=== PATIENT | female | born 1985 | race Caucasian/White ===

== ENCOUNTER 2020-08-14 09:21 | Outpatient (REF) | payer OTHER, SELFPAY ==
[2020-08-14 12:53] LABS: Alanine Aminotransferase 15 U/L (0-31); Albumin Level 4.7 g/dL (3.5-5.0); Alkaline Phosphatase 25 U/L (39-117); Anion Gap 13 (12-20); Aspartate Amino Transferase 13 U/L (5-31); Bilirubin Total 1.1 mg/dL (0.0-1.0); Blood Urea Nitrogen 15 mg/dL (9-16); Calcium 9.4 mg/dL (8.4-10.2); Carbon Dioxide 26 mmol/L (22-29); Chloride 105 mmol/L (96-108); Cholesterol 175 mg/dL; Estimated Glomerular Filt Rate > 60; Glucose Fasting 76 mg/dL (60-99); HDL Cholesterol 63 mg/dL; LDL Cholesterol Calculated 101 mg/dl; Potassium 5.1 mmol/L (3.3-5.1); Sodium 139 mmol/L (135-145); Total Protein 7.3 g/dL (6.5-8.0); Triglycerides 57 mg/dL
== END 2020-08-14 09:22 | disposition home or self-care (01) ==
LOC: HO.HMGCLDS 09:21
PROVIDERS: PCP Nurse Practitioner Family; Visit Provider Nurse Practitioner Family
DX: I49.9 Cardiac arrhythmia, unspecified (principal); Z00.00 Encounter for general adult medical examination without abnormal findings; Z13.220 Encounter for screening for lipoid disorders; Z23 Encounter for immunization
CPT/HCPCS: 36415; 80053; 80061; 84443

== ENCOUNTER → 2020-09-17 12:49 | Outpatient (REF) | payer OTHER, SELFPAY ==
--- NOTE | 2020-09-17 13:10 | ECG_ITS ---
Hook-up date: 2020-09-17 13:06:00 Duration: 25:24:00 Test Indications: CARDIAC ARRHYTHMIA, UNKNOWN Medications: 51816 QRS complexes * Ventricular ectopics which represent % of total QRS comp. 7 Supraventricular ectopics which represent <1 % of total QRS comp. * Paced QRS complexs which represent % of total QRS comp. VENTRICULAR ECTOPY * Isolated * Bigeminal Cycles * Couplets * Runs * Beats in Runs * Beats LONGEST at * BPM at :: -- * Beats FASTEST at * BPM at :: -- SUPRAVENTRICULAR ECTOPY 7 Isolated 0 Couplets 0 Runs 0 Beats in Runs * Beats LONGEST at * BPM at :: -- * Beats FASTEST at * BPM at :: -- HEART RATES 45 MIN at 02:09:44 2020-09-18 68 AVG 163 MAX at 08:48:38 2020-09-18 LONGEST RR 1.3440 secs at 04:56:10 2020-09-18 S-T LEVELS Channel 1 - 128 mm at 13:06:00 2020-09-17 - 128 mm at 13:06:00 2020-09-17 Channel 2 - 128 mm at 13:06:00 2020-09-17 - 128 mm at 13:06:00 2020-09-17 Channel 3 - 128 mm at 03:22:51 -- - 128 mm at 03:22:51 Basic rhythm Normal sinus rhythm No long pause or profound bradycardia No dangerous dysrhythm periods No diary submitted Referred By: Jamal Arredondo Overread By: RONNA EVERETT MD
== END ==
LOC: HO.CARD 12:49
PROVIDERS: Visit Provider Nurse Practitioner Family
DX: I49.9 Cardiac arrhythmia, unspecified (principal)
CPT/HCPCS: 93225; 93226

== ENCOUNTER 2021-11-19 08:28 | Outpatient (REF) | payer OTHER, SELFPAY ==
[2021-11-19 11:17] LABS: MANUAL DIFF FLAG NO
[2021-11-19 11:32] LABS: Basophils Absolute Auto 0.1 X10*3/uL (0.0-0.2); Basophils Percent Auto 1.2 % (0-2); Eosinophils Absolute Auto 0.5 X10*3/uL (0.0-0.4); Hematocrit 44.3 % (37.0-47.0); Hemoglobin 14.5 g/dl (12.0-16.0); Lymphocytes Absolute Auto 2.2 X10*3/uL (1.2-4.9); Lymphocytes Percent Auto 33.5 % (20-40); Mean Corpuscular HGB Conc 32.7 g/dl (31.0-35.0); Mean Corpuscular Hemoglobin 30.3 pg (27.0-33.0); Mean Corpuscular Volume 92.7 fL (80.0-98.0); Mean Platelet Volume 10.8 fL (9.4-12.3); Monocytes Absolute Auto 0.4 X10*3/uL (0.1-1.2); Monocytes Percent Auto 6.4 % (2-11); Neutrophils Absolute Auto 3.3 x10*3/uL (2.0-8.3); Neutrophils Percent Auto 50.9 % (45-73); Platelet Count 289 X10*3/uL (160-400); Red Blood Count 4.78 X10*6/uL (4.20-5.50); Red Cell Distribution Width 12.6 % (11.0-16.0); White Blood Count 6.4 X10*3/uL (4.8-10.8)
[2021-11-19 11:40] LABS: Appearance Urine Clear; Color Urine Yellow; Glucose Urine UA Negative (Negative); Leukocyte Esterase Urine Trace (Negative); Nitrite Urine Negative (Negative); Urine Blood Negative (Negative); Urine Ketones Negative (Negative); Urine Protein Negative (Neg-Trace)
[2021-11-19 11:47] LABS: Bacteria Urine Trace (None Seen); Hyaline Casts Urine 0-2 /LPF (0-2); WBC Urine 0-5 /HPF (0-5)
[2021-11-19 12:34] LABS: TSH reflex Free T4 1.32 uIU/mL (0.32-4.0)
[2021-11-19 12:47] LABS: Alanine Aminotransferase 15 U/L (0-31); Albumin Level 4.2 g/dL (3.5-5.0); Alkaline Phosphatase 25 U/L (39-117); Anion Gap 14 (12-20); Aspartate Amino Transferase 14 U/L (5-31); Bilirubin Total 0.8 mg/dL (0.0-1.0); Blood Urea Nitrogen 14 mg/dL (9-16); Carbon Dioxide 27 mmol/L (22-29); Chloride 104 mmol/L (96-108); Cholesterol 164 mg/dL; Estimated Glomerular Filt Rate > 60; Glucose Fasting 87 mg/dL (60-99); HDL Cholesterol 59 mg/dL; LDL Cholesterol Calculated 88 mg/dl; Potassium 4.9 mmol/L (3.3-5.1); Sodium 140 mmol/L (135-145); Triglycerides 85 mg/dL
== END 2021-11-19 08:29 | disposition home or self-care (01) ==
LOC: HO.HMGCLDS 08:28
PROVIDERS: PCP Nurse Practitioner Family; Visit Provider Nurse Practitioner Family
DX: Z00.00 Encounter for general adult medical examination without abnormal findings (principal)
CPT/HCPCS: 36415; 80053; 80061; 81001; 84443; 85025

== ENCOUNTER 2022-09-16 08:42 | Outpatient (REF) | payer OTHER, SELFPAY ==
[2022-09-16 11:10] LABS: MANUAL DIFF FLAG NO
[2022-09-16 11:24] LABS: Basophils Absolute Auto 0.1 X10*3/uL (0.0-0.2); Basophils Percent Auto 1.5 % (0-2); Eosinophils Absolute Auto 0.9 X10*3/uL (0.0-0.4); Eosinophils Percent Auto 11.8 % (0-4); Hematocrit 43.4 % (37.0-47.0); Imm Gran Abs Auto 0.02 X10*3/uL (0.00-0.03); Imm Gran Pct Auto 0.3 % (0.0-0.4); Lymphocytes Absolute Auto 2.1 X10*3/uL (1.2-4.9); Lymphocytes Percent Auto 27.7 % (20-40); Mean Corpuscular HGB Conc 32.3 g/dl (31.0-35.0); Mean Corpuscular Hemoglobin 29.7 pg (27.0-33.0); Mean Corpuscular Volume 92.1 fL (80.0-98.0); Mean Platelet Volume 10.8 fL (9.4-12.3); Monocytes Absolute Auto 0.4 X10*3/uL (0.1-1.2); Monocytes Percent Auto 5.3 % (2-11); Neutrophils Percent Auto 53.4 % (45-73); Platelet Count 327 X10*3/uL (160-400); Red Blood Count 4.71 X10*6/uL (4.20-5.50); Red Cell Distribution Width 12.8 % (11.0-16.0); White Blood Count 7.4 X10*3/uL (4.8-10.8)
[2022-09-16 11:27] LABS: Appearance Urine Clear; Color Urine Yellow; Glucose Urine UA Negative (Negative); Leukocyte Esterase Urine Negative (Negative); Nitrite Urine Negative (Negative); PH 6.5 (5.0-9.0); Specific Gravity - Urine 1.025 (1.005-1.025); Urine Blood Negative (Negative); Urine Ketones Negative (Negative); Urine Protein Negative (Neg-Trace)
[2022-09-16 11:45] LABS: Alanine Aminotransferase 16 U/L (0-31); Albumin Level 3.9 g/dL (3.5-5.0); Alkaline Phosphatase 30 U/L (39-117); Anion Gap 13 (12-20); Aspartate Amino Transferase 13 U/L (5-31); Bilirubin Total 0.5 mg/dL (0.0-1.0); Blood Urea Nitrogen 21 mg/dL (9-16); Calcium 9.5 mg/dL (8.4-10.2); Carbon Dioxide 26 mmol/L (22-29); Chloride 108 mmol/L (96-108); Cholesterol 175 mg/dL; Estimated Glomerular Filt Rate > 60; Glucose Fasting 86 mg/dL (60-99); HDL Cholesterol 70 mg/dL; LDL Cholesterol Calculated 95 mg/dl; Potassium 5.5 mmol/L (3.3-5.1); Sodium 141 mmol/L (135-145); Total Protein 6.9 g/dL (6.5-8.0); Triglycerides 50 mg/dL
[2022-09-16 12:05] LABS: TSH reflex Free T4 1.45 uIU/mL (0.32-4.0)
== END 2022-09-16 08:43 | disposition home or self-care (01) ==
LOC: HO.HMGCLDS 08:42
PROVIDERS: PCP Nurse Practitioner Family; Visit Provider Nurse Practitioner Family
DX: Z00.00 Encounter for general adult medical examination without abnormal findings (principal); Z13.220 Encounter for screening for lipoid disorders; Z13.29 Encounter for screening for other suspected endocrine disorder
CPT/HCPCS: 36415; 80053; 80061; 81003; 84443; 85025

== ENCOUNTER 2022-09-17 08:26 | Outpatient (REF) | payer OTHER, SELFPAY ==
[2022-09-17 11:33] LABS: Appearance Urine Clear; Color Urine Yellow; Glucose Urine UA Negative (Negative); Leukocyte Esterase Urine Negative (Negative); Nitrite Urine Negative (Negative); PH 6.5 (5.0-9.0); Specific Gravity - Urine <= 1.005 (1.005-1.025); Urine Blood Negative (Negative); Urine Ketones Negative (Negative); Urine Protein Negative (Neg-Trace)
== END 2022-09-17 08:27 | disposition home or self-care (01) ==
LOC: HO.HMGCLDS 08:26
PROVIDERS: PCP Nurse Practitioner Family; Visit Provider Nurse Practitioner Family
DX: Z00.00 Encounter for general adult medical examination without abnormal findings (principal); E87.5 Hyperkalemia
CPT/HCPCS: 36415; 80051; 81003

== ENCOUNTER 2022-09-21 14:25 | Outpatient (AMB) | payer OTHER, SELFPAY ==
--- NOTE | 2022-09-21 14:47 | MHC.PC.OV ---
Vital Signs 09/21/22 14:48 Height 5 ft 4 in Weight 175 lb 6 oz BMI 30.1 BP 126/88 Blood Pressure Location Lt brachial Position Sitting Pulse 75 Pulse Source Pulse Oximeter Pulse Oximetry (%) 100 Oxygen Delivery Method Room Air Intake Visit Reasons: Annual PE Allergies nitrofurantoin [Macrobid] Allergy (Unknown, Verified 09/21/22 14:52) nausea penicillin V Allergy (Unknown, Verified 09/21/22 14:52) hives Medication List - Last Reconciled 09/21/22 by EDDIE Russo albuterol sulfate 90 mcg/actuation 2 puffs inhalation Q4-6H PRN desogestrel-ethinyl estradiol 0.15-0.03 mg (Isibloom) 1 tab PO DAILY fluticasone propionate 110 mcg/actuation (Flovent HFA) 1 puff inhalation BID sertraline 50 mg PO DAILY Tobacco use date assessed: 09/15/21 Dental Screening Dental Screen Date: 09/21/22 Did you have a dental visit in the last 12 months?: Yes Did you have a dental problem in the last 6 months where you did not have access to dental care?: No Was dental information given to patient?: Patient has dentist HPI Annual PE HPI Details Pt is here for a PE. Will order labs. Pt has a obstetrics gynecology physician. Labs were already drawn [facility] Medical History Cardiac arrhythmia, unspecified Moderate persistent asthma without complication Surgical History H/O abdominoplasty H/O breast augmentation Hx of section Family History Father Cholangiocarcinoma Hypertension Substance use disorder Mother Hypertension Diabetes High cholesterol Social History Housing: House Alcohol intake: current Alcohol intake frequency: a few times a week Alcohol type: wine Patient Tobacco Use Status: Never used Tobacco e-Cigarette/Vaping Use: Never Used Second Hand Smoke Exposure: No service: No Current occupational status: employed Current occupation: [employer] Current occupational exposures/hazards: Yes Cognitive needs: No Hearing needs: No Vision needs: No Questionnaire Thrive Questionnaire Date Thrive assessed: 09/15/21 RANDY-7 AMB Questionnaire RANDY-7 Date RANDY - 7 assessed: 09/15/21 Source: Developed by Drs. Goran Bernabe, Kelli Singer, Wilbur Mayfield and colleagues, with an educational johny from [employer]. Review of Systems Const Denies chills and Denies fever(s) Eyes Denies blurry vision ENT Denies vertigo, Denies dizziness and Denies sore throat Card Denies chest pain at rest, Denies chest pain with activity, Denies diaphoresis, Denies dyspnea and Denies dyspnea on exertion Resp Denies cough, Denies dyspnea, Denies dyspnea on exertion and Denies wheezing GI Denies abdominal pain, Denies melena, Denies hematochezia, Denies constipation, Denies diarrhea and Denies loose stools Denies hematuria Musc Denies numbness and Denies tingling Skin/Breast Denies lesions Neuro Denies vertigo, Denies dizziness, Denies numbness and Denies tingling Psych Denies anxiety, Denies depression, Denies homicidal ideation, Denies suicidal ideation and Denies other (substance abuse) Aller/Immun Denies wheezing Physical exam (Primary Care) Vital Signs: Last Vital Signs Pulse 75 09/21/22 14:48 BP 126/88 09/21/22 14:48 Pulse Ox 100 09/21/22 14:48 Oxygen Delivery Method Room Air 09/21/22 14:48 BMI result Body Mass Index 30.1 Tobacco/Smoking Status: Tobacco use Status Tobacco use date assessed 09/15/21 09/21/22 14:57 Patient Tobacco Use Status Never used Tobacco 09/21/22 14:57 e-Cigarette/Vaping Use Never Used 09/21/22 14:57 Thrive Assessment: Date of Thrive Assessment Date Thrive assessed 09/15/21 09/21/22 14:57 Const General: cooperative Nutritional Appearance: well nourished Orientation/consciousness: patient oriented x3 HENMT Head: Yes normal to inspection, Yes normocephalic and Yes atraumatic Ears: TM's normal bilaterally Eyes General: appearance normal, both eyes and all related structures Alignment and Position: alignment normal and position normal Neck Neck: Yes normal visual inspection and Yes no lymphadenopathy Thyroid: Thyroid normal Resp Effort & Inspection: normal respiratory effort Auscultation: clear to auscultation bilaterally Cardio Rate: regular rate Rhythm: regular rhythm Heart sounds: S1 normal heart sound present, S2 normal heart sound present and no murmurs GI Palpation (GI): Soft to palpation and nontender Auscultation: normal bowel sounds Skin Rashes: no rashes Neuro General: patient oriented x3, moves all extremities, no focal motor deficits and deep tendon reflexes 2+ bilaterally Romberg Test: Negative Psych Appearance: grossly normal Mental Status: mental status grossly normal Speech and movement: Normal speech and movement present Affect: normal affect Attitude: cooperative Thought process: Normal thought process present Thought content: Normal thought content present Insight: Good insight present (Psych) Judgement: Good judgement present (Psych) Assessment and Plan Assessment & Plan (1) Hyperkalemia: Code(s): E87.5 - Hyperkalemia (2) Physical exam: Code(s): Z00.00 - Encounter for general adult medical examination without abnormal findings Plan The patient agreed to the use of a medical records administrator for this encounter. Scribed for HENRY Kennedy-CLARISSA by Jolie Mo medical records administrator, on 09/21/2022 at 15:20 EST. Orders: Orders Comprehensive Met. Panel Today E87.5 - Hyperkalemia Coding Level of Care Code Est Pt Prev Care 18-39y(03576) Diagnoses Hyperkalemia E87.5 Physical exam Z00.00
[2022-09-21 14:48] VITALS: BP 126/88; PULSE 75; O2SAT 100; BMI 30.1
== END 2022-09-21 16:06 | disposition home or self-care (01) ==
PROVIDERS: Visit Provider Nurse Practitioner Family
DX: E87.5 Hyperkalemia (principal); Z00.00 Encounter for general adult medical examination without abnormal findings
CPT/HCPCS: 99395

== ENCOUNTER 2023-03-10 12:11 | Outpatient (AMB) | payer OTHER, SELFPAY ==
[2023-03-10 12:33] VITALS: BP 118/68; PULSE 80; TEMP 36.9; O2SAT 98; BMI 30.6
--- NOTE | 2023-03-10 12:33 | MHC.OFFWIV ---
Intake Vital Signs 03/10/23 12:33 Height 5 ft 4 in Weight 178 lb BMI 30.6 BP 118/68 Blood Pressure Location Lt brachial Position Sitting Pulse 80 Pulse Source Pulse Oximeter Temp 98.5 F Pulse Oximetry (%) 98 Oxygen Delivery Method Room Air Intake Visit Reasons: EST/cough ruthie (lobby masked) Intake Note: pt is here today for cough started 02/27 Patient Tobacco Use Status: Never used Tobacco Allergies nitrofurantoin [Macrobid] Allergy (Unknown, Verified 03/10/23 13:01) nausea penicillin V Allergy (Unknown, Verified 03/10/23 13:01) hives Do you need a note to return to daycare/school/sports/work: No HPI HPI Comments History of Present Illness Details She presents with cough 02/27 bad cold with fatigue and congestion, no fever She said cough has been lingering since She has been taking Alkaseltzer without relief Does not like taking decongestant + rib pain due to cough + upper back pain Cough has some phlegm but not all the time Minimal congestion No fever or chills now Fatigue is better PFSH Medical History Cardiac arrhythmia, unspecified Moderate persistent asthma without complication Surgical History H/O abdominoplasty H/O breast augmentation Hx of section Family History Father Cholangiocarcinoma Hypertension Substance use disorder Mother Hypertension Diabetes High cholesterol Social History Housing: House Alcohol intake: current Alcohol intake frequency: a few times a week Alcohol type: wine Patient Tobacco Use Status: Never used Tobacco e-Cigarette/Vaping Use: Never Used Second Hand Smoke Exposure: No service: No Current occupational status: employed Current occupation: [employer] Current occupational exposures/hazards: Yes Cognitive needs: No Hearing needs: No Vision needs: No Review of Systems Const Denies body aches, Denies chills, Reports fatigue and Denies fever(s) Eyes Denies blurry vision ENT Denies otalgia, Reports nasal congestion, Denies sinus pressure, Denies sore throat and Denies throat swelling Card Denies chest pain and Denies dyspnea Resp Reports chest congestion, Reports cough and Denies dyspnea GI Denies abdominal pain Musc Reports back pain Neuro Denies focal weakness Endo Reports fatigue Aller/Immun Denies throat swelling Physical Exam Vital Signs: Last Vital Signs Temp 98.5 F 03/10/23 12:33 Pulse 80 03/10/23 12:33 BP 118/68 03/10/23 12:33 Pulse Ox 98 03/10/23 12:33 Oxygen Delivery Method Room Air 03/10/23 12:33 BMI result Body Mass Index 30.6 General: Non-toxic, NAD. Speaking full sentences. Skin: Warm dry throughout Eye: EOMI, PERRL HENT: Airway patent. Uvula midline. No pharyngeal erythema or edema. No [employer] [place]. Bilateral canals clear. TM non-erythematous, non-bulging. No TM perforation or hemotympanum noted. + rhinorrhea Respiratory: CTA bilaterally. No wheezes, rales or rhonchi Cardiac: RRR. No murmur MSK: Full ROM extremities. Neurology: A/O. No aphasia or facial droop. Gait without abnormality Psych: Good mood and affect Assessment & Plan Assessment & Plan (1) Upper respiratory infection: Code(s): J06.9 - Acute upper respiratory infection, unspecified Qualifiers: URI type: unspecified viral URI Qualified Code(s): J06.9 - Acute upper respiratory infection, unspecified Plan: Patient seen and evaluated. Lungs CTA and O2 is 98% Discussed RSV/covid/flu swab and it will not electronic data interchange specialist so pt would like to hold Shes on day 7 of cough and day 10 of symptoms so would be out of covid quarantine clinical exam has no rales or fever or dyspnea on exam She will trial tessalon and monitor symptoms We discussed lingering of cough for another 5-7 days, onset fever, worsening symptoms call back immediately and be seen here or PCP or ED Patient gave verbal understanding and had no additional questions or concerns at time of discharge All questions answered Plan Patient seen and evaluated. Lungs CTA Vitals stable Discussed RSV/covid/flu swab but pt declined as it would not electronic data interchange specialist No clinical sign of PNA on exam She s on day 10 of symptoms and day 7 of cough so would be out of covid quarantine. Tessalon for cough Monitor for s/s that warrant further eval or possible antibiotic such as worsening cough of pain, SOB, fever, hemoptysis etc F/U with PCP or ER if worse Patient gave verbal understanding and had no additional questions or concerns at time of discharge All questions answered Medications: New benzonatate 150 mg PO BID-TID PRN 14 caps 0RF cough J06.9 - Acute upper respiratory infection, unspecified Coding Level of Care Code Est Pt Level 3 (56552) Diagnoses Viral upper respiratory tract infection J06.9 URI type: unspecified viral URI
== END 2023-03-10 15:20 | disposition home or self-care (01) ==
PROVIDERS: PCP Nurse Practitioner Family; Visit Provider Physician Assistant
DX: J06.9 Acute upper respiratory infection, unspecified (principal)
CPT/HCPCS: 99213

== ENCOUNTER 2023-09-27 11:23 | Outpatient (AMB) | payer OTHER, SELFPAY ==
--- NOTE | 2023-09-27 11:32 | MHC.PC.OV ---
Vital Signs 09/27/23 11:37 Height 5 ft 4 in Weight 180 lb BMI 30.9 BP 110/70 Blood Pressure Location Rt brachial Position Sitting Pulse 67 Pulse Source Pulse Oximeter Pulse Oximetry (%) 100 Oxygen Delivery Method Room Air Intake Visit Reasons: Annual PE Intake Note: Patient here for physical exam. Pap: 2022 due in 3yrs Allergies nitrofurantoin [Macrobid] Allergy (Unknown, Verified 09/27/23 12:12) nausea penicillin V Allergy (Unknown, Verified 09/27/23 12:12) hives Medication List - Last Reconciled 09/27/23 by EDDIE Russo albuterol sulfate 90 mcg/actuation 2 puffs inhalation Q4-6H PRN desogestrel-ethinyl estradiol 0.15-0.03 mg (Isibloom) 1 tab PO DAILY Tobacco use date assessed: 09/27/23 Dental Screening Dental Screen Date: 09/27/23 Did you have a dental visit in the last 12 months?: Yes Did you have a dental problem in the last 6 months where you did not have access to dental care?: No Was dental information given to patient?: Patient has dentist HPI Annual PE HPI Details Here for a PE. pt has a intelligence operations. [facility] Medical History Cardiac arrhythmia, unspecified Moderate persistent asthma without complication Surgical History Hx of section H/O abdominoplasty H/O breast augmentation Family History Father Cholangiocarcinoma Hypertension Substance use disorder Mother Hypertension Diabetes High cholesterol Social History Housing: House Alcohol intake: current Alcohol intake frequency: a few times a week Alcohol type: wine Patient Tobacco Use Status: Never used Tobacco e-Cigarette/Vaping Use: Never Used Second Hand Smoke Exposure: No service: No Current occupational status: employed Current occupation: [employer] Current occupational exposures/hazards: Yes Cognitive needs: No Hearing needs: No Vision needs: No Questionnaire PHQ-9 Over the last 2 weeks, how often have you been bothered by any of the following problems? 1. Little interest or pleasure in doing things: not at all 2. Feeling down, depressed, or hopeless: not at all 3. Trouble falling or staying asleep, or sleeping too much: several days 4. Feeling tired or having little energy: not at all 5. Poor appetite or overeating: not at all 6. Feeling bad about yourself - or that you are a failure or have let yourself or your family down: not at all 7. Trouble concentrating on things, such as reading the newspaper or watching television: not at all 8. Moving or speaking so slowly that other people could have noticed. Or the opposite - being so fidgety or restless that you have been moving around a lot more than usual: not at all 9. Thoughts that you would be better off or of hurting yourself in some way: not at all Total score: 1 Depression Screening Interpretation: Negative Depression Screening Done: Yes 11475 - PHQ-9 Billing: Yes Source: Developed by Drs. Goran Bernabe, Kelli Singer, Wilbur Mayfield and colleagues, with an educational johny from [employer]. Thrive Questionnaire Date Thrive assessed: 09/27/23 I am a: Patient What is your living situation today?: I have a steady place to live Within the past 12 months, did the food you bought not last and you didn't have the money to get more?: Never true Within the past 12 months, did you worry whether your food would run out before you got money to buy more?: Never true Do you have trouble paying for medicines?: No Do you have trouble getting transportation to medical appointments?: No Do you have trouble paying your heating and electricity bill?: No Do you have trouble taking care of your child, family member or friend?: No Do you have trouble with day-to-day activities such as bathing, preparing meals, shopping, managing finances, etc.?: No Are you currently unemployed and looking for a job?: No Are you interested in more education?: No Please select the resources that you would like help with: Housing/Skilled Nursing Currently or been in a relationship where the following occur: No concerns reported THRIVE Score: 0 AUDIT C Alcohol Use Questionnaire (AUDIT-C) 1. How often do you have a drink containing alcohol?: 2-4 times a month 2. How many drinks containing alcohol do you have on a typical day when you are drinking?: 1 or 2 3. How often do you have six or more drinks on one occasion?: Never Total Score: 2 Score Reviewed/Action Taken: Yes RANDY-7 AMB Questionnaire RANDY-7 Date RANDY - 7 assessed: 09/27/23 Feeling nervous, anxious, or on edge: 0 = Not at all Not being able to stop or control worryin = Several days Worrying too much about different things: 0 = Not at all Trouble relaxin = Several days Being so restless that it is hard to sit still: 0 = Not at all Becoming easily annoyed or irritable: 0 = Not at all Feeling afraid as if something awful might happen: 0 = Not at all Total RANDY-7 score (0-4 normal; 5-9 mild; 10-14 moderate; 15-21 severe): 2 Source: Developed by Drs. Goran Bernabe, Kelli Singer, Wilbur Mayfield and colleagues, with an educational johny from [employer]. RANDY-7 Assessment Billing RANDY-7 Assessment Tool: RANDY-7 Assessment 50652 Review of Systems Const Denies chills and Denies fever(s) Eyes Denies blurry vision ENT Denies vertigo, Denies dizziness and Denies sore throat Card Denies chest pain at rest, Denies chest pain with activity, Denies diaphoresis, Denies dyspnea and Denies dyspnea on exertion Resp Denies cough, Denies dyspnea, Denies dyspnea on exertion and Denies wheezing GI Denies abdominal pain, Denies melena, Denies hematochezia, Denies constipation, Denies diarrhea and Denies loose stools Denies hematuria Musc Denies numbness and Denies tingling Skin/Breast Denies lesions Neuro Denies vertigo, Denies dizziness, Denies numbness and Denies tingling Psych Denies anxiety, Denies depression, Denies homicidal ideation, Denies suicidal ideation and Denies other (substance abuse) Aller/Immun Denies wheezing Physical exam (Primary Care) Vital Signs: Last Vital Signs Pulse 67 09/27/23 11:37 BP 110/70 09/27/23 11:37 Pulse Ox 100 09/27/23 11:37 Oxygen Delivery Method Room Air 09/27/23 11:37 BMI result Body Mass Index 30.9 Tobacco/Smoking Status: Tobacco use Status Tobacco use date assessed 09/27/23 09/27/23 11:43 Patient Tobacco Use Status Never used Tobacco 09/27/23 11:33 e-Cigarette/Vaping Use Never Used 09/27/23 11:33 PHQ-9: PHQ-9 Score PHQ-9: Total score 1 09/27/23 11:47 Depression Screening Interpretation: Negative Thrive Assessment: Date of Thrive Assessment Date Thrive assessed 09/27/23 09/27/23 11:47 Currently or been in a relationship where the following occur: No concerns reported Const General: cooperative Nutritional Appearance: well nourished Orientation/consciousness: patient oriented x3 HENMT Head: Yes normal to inspection, Yes normocephalic and Yes atraumatic Ears: TM normal on the right and TM normal on the left Eyes General: appearance normal, both eyes and all related structures Alignment and Position: alignment normal and position normal Neck Neck: Yes normal visual inspection and Yes no lymphadenopathy Resp Effort & Inspection: normal respiratory effort Auscultation: clear to auscultation bilaterally Cardio Rate: regular rate Rhythm: regular rhythm Heart sounds: S1 normal heart sound present, S2 normal heart sound present and no murmurs GI Palpation (GI): Soft to palpation and nontender Auscultation: normal bowel sounds Skin Rashes: no rashes Neuro General: patient oriented x3, moves all extremities, no focal motor deficits and deep tendon reflexes 2+ bilaterally Romberg Test: Negative Extrem Right lower extremity: no edema Left lower extremity: no edema Psych Affect: normal affect Attitude: cooperative Thought process: Normal thought process present Assessment and Plan Assessment & Plan (1) Physical exam: Code(s): Z00.00 - Encounter for general adult medical examination without abnormal findings Plan: labs ordered Orders: Orders Comprehensive Holt. Panel Fast Today Z00.00 - Encounter for general adult medical examination without abnormal findings TSH reflex Free T4 Today Z00.00 - Encounter for general adult medical examination without abnormal findings Complete Blood Count Auto Diff Today Z00.00 - Encounter for general adult medical examination without abnormal findings UA CC w/rflx Micro + Cult Today Z00.00 - Encounter for general adult medical examination without abnormal findings Lipid Panel Today Z00.00 - Encounter for general adult medical examination without abnormal findings Coding Level of Care Code Est Pt Prev Care 18-39y(51907) Diagnoses Physical exam Z00.00 Additional Codes RANDY-7 Assessment Billing - RANDY-7 Assessment Tool: RANDY-7 Assessment 44563 ([id number])
[2023-09-27 11:37] VITALS: BP 110/70; PULSE 67; O2SAT 100; BMI 30.9
== END 2023-09-27 12:09 | disposition home or self-care (01) ==
PROVIDERS: PCP Nurse Practitioner Family; Visit Provider Nurse Practitioner Family
DX: Z00.00 Encounter for general adult medical examination without abnormal findings (principal)
CPT/HCPCS: 99395

== ENCOUNTER 2023-09-29 07:08 | Outpatient (REF) | payer OTHER, SELFPAY ==
[2023-09-29 10:10] LABS: MANUAL DIFF FLAG NO
[2023-09-29 10:17] LABS: Basophils Absolute Auto 0.1 X10*3/uL (0.0-0.2); Eosinophils Absolute Auto 0.8 X10*3/uL (0.0-0.4); Eosinophils Percent Auto 11.2 % (0-4); Hematocrit 43.2 % (37.0-47.0); Hemoglobin 14.1 g/dl (12.0-16.0); Imm Gran Abs Auto 0.01 X10*3/uL (0.00-0.03); Imm Gran Pct Auto 0.1 % (0.0-0.4); Lymphocytes Absolute Auto 2.2 X10*3/uL (1.2-4.9); Lymphocytes Percent Auto 32.6 % (20-40); Mean Corpuscular HGB Conc 32.6 g/dl (31.0-35.0); Mean Corpuscular Hemoglobin 29.9 pg (27.0-33.0); Mean Corpuscular Volume 91.5 fL (80.0-98.0); Mean Platelet Volume 11.4 fL (9.4-12.3); Monocytes Absolute Auto 0.3 X10*3/uL (0.1-1.2); Monocytes Percent Auto 4.9 % (2-11); Neutrophils Absolute Auto 3.4 x10*3/uL (2.0-8.3); Neutrophils Percent Auto 50.2 % (45-73); Platelet Count 289 X10*3/uL (160-400); Red Blood Count 4.72 X10*6/uL (4.20-5.50); Red Cell Distribution Width 13.2 % (11.0-16.0); White Blood Count 6.7 X10*3/uL (4.8-10.8)
[2023-09-29 10:31] LABS: Appearance Urine Clear; Color Urine Yellow; Glucose Urine UA Negative (Negative); Leukocyte Esterase Urine Trace (Negative); Nitrite Urine Negative (Negative); PH 7.5 (5.0-9.0); Specific Gravity - Urine 1.015 (1.005-1.025); UMIC TRIGGER UACC YES; Urine Blood Negative (Negative); Urine Ketones Negative (Negative); Urine Protein Negative (Neg-Trace)
[2023-09-29 10:35] LABS: Alanine Aminotransferase 17 U/L (0-31); Alkaline Phosphatase 26 U/L (39-117); Anion Gap 14 (12-20); Aspartate Amino Transferase 13 U/L (5-31); Bilirubin Total 0.5 mg/dL (0.0-1.0); Blood Urea Nitrogen 14 mg/dL (9-16); Calcium 9.1 mg/dL (8.4-10.2); Carbon Dioxide 23 mmol/L (22-29); Chloride 105 mmol/L (96-108); Cholesterol 168 mg/dL (<200); Estimated Glomerular Filt Rate > 60; Glucose Fasting 94 mg/dL (60-99); HDL Cholesterol 65 mg/dL (>40); LDL Cholesterol Calculated 87 mg/dL (<100); Potassium 5.1 mmol/L (3.3-5.1); Sodium 137 mmol/L (135-145); Total Protein 6.8 g/dL (6.5-8.0); Triglycerides 82 mg/dL (<150)
[2023-09-29 10:38] LABS: Bacteria Urine 1+ (None Seen); Hyaline Casts Urine 0-2 /LPF (0-2); RBC Urine 0-2 /HPF (0-2); WBC Urine 0-5 /HPF (0-5)
[2023-09-29 10:52] LABS: TSH reflex Free T4 2.27 uIU/mL (0.32-4.0)
== END 2023-09-29 07:09 | disposition home or self-care (01) ==
LOC: HO.HMGCLDS 07:08
PROVIDERS: PCP Nurse Practitioner Family; Visit Provider Nurse Practitioner Family
DX: Z00.00 Encounter for general adult medical examination without abnormal findings (principal)
CPT/HCPCS: 36415; 80053; 80061; 81001; 84443; 85025

== ENCOUNTER 2023-09-30 16:31 | Outpatient (REF) | payer OTHER, SELFPAY ==
[2023-10-01 00:50] LABS: Magnesium 2.1 mg/dL (1.6-2.6)
[2023-10-01 02:40] LABS: Folate 8.3 ng/mL (> or = 4.0); Vitamin B12 334 pg/mL (200-900)
[2023-10-03 06:59] LABS: Ceruloplasmin 47 mg/dL (14-48)
[2023-10-04 02:29] LABS: Zinc 69 mcg/dL (60-130)
== END 2023-09-30 16:32 | disposition home or self-care (01) ==
LOC: HO.LAB 16:31
PROVIDERS: PCP Nurse Practitioner Family; Visit Provider Nurse Practitioner Family
DX: R74.8 Abnormal levels of other serum enzymes (principal)
CPT/HCPCS: 36415; 82390; 82607; 82746; 83735; 84630

== ENCOUNTER 2024-10-09 06:55 | Outpatient (REF) | payer OTHER, SELFPAY ==
[2024-10-09 10:14] LABS: MANUAL DIFF FLAG NO
[2024-10-09 10:16] LABS: Hematocrit 45.1 % (37.0-47.0); Hemoglobin 15.0 g/dl (12.0-16.0); Imm Gran Abs Auto 0.02 X10*3/uL (0.00-0.03); Imm Gran Pct Auto 0.3 % (0.0-0.4); Lymphocytes Absolute Auto 2.3 X10*3/uL (1.2-4.9); Mean Corpuscular HGB Conc 33.3 g/dl (31.0-35.0); Mean Corpuscular Hemoglobin 29.9 pg (27.0-33.0); Mean Corpuscular Volume 89.8 fL (80.0-98.0); NRBC Abs Auto 0.000 X10*3/uL (0.0-0.012); NRBC Pct Auto 0.0 /100WBC (0.0-0.2); Platelet Count 284 X10*3/uL (160-400); Red Blood Count 5.02 X10*6/uL (4.20-5.50); White Blood Count 7.5 X10*3/uL (4.8-10.8)
[2024-10-09 10:35] LABS: Appearance Urine Clear; Glucose Urine UA Negative (Negative); PH 7.5 (5.0-9.0); Specific Gravity - Urine <= 1.005 (1.005-1.025)
[2024-10-09 11:05] LABS: Albumin Level 4.5 g/dL (3.5-5.0); Alkaline Phosphatase 32 U/L (39-117); Anion Gap 12 (12-20); Aspartate Amino Transferase 29 U/L (5-31); Blood Urea Nitrogen 10 mg/dL (9-16); Calcium 9.3 mg/dL (8.4-10.2); Carbon Dioxide 26 mmol/L (22-29); Chloride 107 mmol/L (96-108); Cholesterol 179 mg/dL (<200); Estimated Glomerular Filt Rate > 60; HDL Cholesterol 55 mg/dL (>40); Potassium 4.7 mmol/L (3.3-5.1); Sodium 140 mmol/L (135-145); Total Protein 7.3 g/dL (6.5-8.0); Triglycerides 87 mg/dL (<150)
[2024-10-09 11:26] LABS: Alanine Aminotransferase 43 U/L (0-31)
== END 2024-10-09 06:56 | disposition home or self-care (01) ==
LOC: HO.HMGCLDS 06:55
PROVIDERS: PCP Nurse Practitioner Family; Visit Provider Nurse Practitioner Family
DX: Z00.00 Encounter for general adult medical examination without abnormal findings (principal)
CPT/HCPCS: 36415; 80053; 80061; 81003; 82306; 84443; 85025

== ENCOUNTER 2024-10-11 08:19 | Outpatient (AMB) | payer OTHER, SELFPAY ==
--- NOTE | 2024-10-11 08:22 | MHC.PC.OV ---
Vital Signs 10/11/24 08:23 Height 5 ft 4 in Weight 182 lb BMI 31.2 BP not taken reason Patient Refused Respiration 16 Pulse 69 Pulse Source Pulse Oximeter Temp 98.5 F Temp Source Oral Pulse Oximetry (%) 98 Oxygen Delivery Method Room Air Intake Visit Reasons: Annual PE Ski Maker Required: No Accompanied by: Self / Same As Patient Allergies nitrofurantoin (Macrobid) Allergy (Unknown, Verified 10/11/24 09:03) nausea penicillin V Allergy (Unknown, Verified 10/11/24 09:03) hives Medication List - Last Reconciled 10/11/24 by Jamal Arredondo, [employer]- albuterol sulfate 90 mcg/actuation 2 puffs inhalation Q4-6H PRN Tobacco use date assessed: 09/27/23 Dental Screening Dental Screen Date: 10/11/24 Did you have a dental visit in the last 12 months?: Yes Did you have a dental problem in the last 6 months where you did not have access to dental care?: No Was dental information given to patient?: Patient has dentist HPI Annual PE HPI Details History of Present Illness The patient is a 39-year-old female presenting with hormonal imbalance following the cessation of control. She stopped taking control approximately two weeks ago, which has resulted in significant hormonal fluctuations, causing her to feel as though she wants to jump out of her skin. These symptoms are expected to improve over the next few weeks, and she has been advised to reach out with any further questions or concerns. The patient also reports a recent weight gain and an elevation in liver enzymes. There is a plan to monitor the liver enzymes and consider an abdominal ultrasound and hepatitis screening if necessary, although there is no immediate concern. Additionally, the patient is experiencing stress, which may be contributing to her current health issues. Health Maintenance Social History Review of Systems - Psychiatric: Denies suicidal ideation, denies homicidal ideation. - Cardiovascular: Denies chest pain. - Respiratory: Denies shortness of breath. - Gastrointestinal: Denies abdominal pain, denies constipation, denies diarrhea. Physical Exam General: Cooperative, healthy appearing, comfortable, no acute distress and well developed, obese Orientation: Patient oriented x3 Limitations: No limitations Head: Normal to inspection Ears: Hearing grossly normal bilaterally Nose: Normal external nose present Face and sinus: Normal facial exam Eyes: Appearance normal, both eyes and all related structures Neck: Normal visual inspection and Yes full ROM Respiratory: Normal respiratory effort and able to speak in complete sentences. Clear to auscultation bilaterally Cardiovascular: Regular rate and rhythm. Normal S1 and S2 GI: Normal to inspection. Soft to palpation and nontender : testicles without masses/lesions and no hernias appreciated Skin: No rashes or lesions noted Neuro: Patient oriented x3 Extremities: Normal to inspection Results Plan The plan includes monitoring the patient's hormonal symptoms following the cessation of control, with the expectation that these symptoms will improve over the next few weeks. The patient is advised to contact the clinic with any further questions or concerns. Regarding the elevated liver enzymes, the plan is to continue monitoring and consider an abdominal ultrasound and hepatitis screening if necessary. The patient is encouraged to work on her diet to address the recent weight gain. Patient was informed and verbally consented to the use of an ambient scribe for clinic note documentation during this visit. Discussion Notes I discussed with the patient the hormonal changes she is experiencing following the cessation of control and reassured her that these symptoms are expected to improve over time. We also talked about the elevated liver enzymes and the plan to monitor them, with the possibility of further testing if necessary. I advised her to work on her diet to help manage her weight gain and encouraged her to reach out with any further questions or concerns. Patient Instructions - Monitor symptoms and contact the clinic if they worsen or if you have any concerns. - Work on improving your diet to help manage weight gain. - Follow up with any further questions or concerns. [facility] Medical History Cardiac arrhythmia, unspecified Moderate persistent asthma without complication Surgical History Hx of section H/O abdominoplasty H/O breast augmentation Family History Father Cholangiocarcinoma Hypertension Substance use disorder Mother Hypertension Diabetes High cholesterol Social History Housing: House Alcohol intake: current Alcohol intake frequency: a few times a week Alcohol type: wine Patient Tobacco Use Status: Never used Tobacco e-Cigarette/Vaping Use: Never Used Second Hand Smoke Exposure: No service: No Current occupational status: employed Current occupation: [employer] Current occupational exposures/hazards: Yes Cognitive needs: No Hearing needs: No Vision needs: No Questionnaire PHQ-9 Over the last 2 weeks, how often have you been bothered by any of the following problems? 1. Little interest or pleasure in doing things: not at all 2. Feeling down, depressed, or hopeless: not at all 3. Trouble falling or staying asleep, or sleeping too much: several days 4. Feeling tired or having little energy: not at all 5. Poor appetite or overeating: not at all 6. Feeling bad about yourself - or that you are a failure or have let yourself or your family down: not at all 7. Trouble concentrating on things, such as reading the newspaper or watching television: not at all 8. Moving or speaking so slowly that other people could have noticed. Or the opposite - being so fidgety or restless that you have been moving around a lot more than usual: not at all 9. Thoughts that you would be better off or of hurting yourself in some way: not at all Total score: 1 Depression Screening Interpretation: Negative Depression Screening Done: Yes 74821 - PHQ-9 Billing: Yes Source: Developed by Drs. Goran Bernabe, Kelli Singer, Wilbur Mayfield and colleagues, with an educational johny from [employer]. Thrive Questionnaire Date Thrive assessed: 10/04/24 I am a: Patient What is your living situation today?: I have a steady place to live Within the past 12 months, did the food you bought not last and you didn't have the money to get more?: Never true Within the past 12 months, did you worry whether your food would run out before you got money to buy more?: Never true Do you have trouble paying for medicines?: No Do you have trouble getting transportation to medical appointments?: No Do you have trouble paying your heating and electricity bill?: No Do you have trouble taking care of your child, family member or friend?: No Do you have trouble with day-to-day activities such as bathing, preparing meals, shopping, managing finances, etc.?: No Are you currently unemployed and looking for a job?: No Are you interested in more education?: No Please select the resources that you would like help with: None Currently or been in a relationship where the following occur: No concerns reported THRIVE Score: 0 AUDIT C Alcohol Use Questionnaire (AUDIT-C) 1. How often do you have a drink containing alcohol?: Never 3. How often do you have six or more drinks on one occasion?: Never Total Score: 0 RANDY-7 AMB Questionnaire RANDY-7 Date RANDY - 7 assessed: 10/11/24 Feeling nervous, anxious, or on edge: 1 = Several days Not being able to stop or control worryin = Several days Worrying too much about different things: 1 = Several days Trouble relaxin = Several days Being so restless that it is hard to sit still: 0 = Not at all Becoming easily annoyed or irritable: 1 = Several days Feeling afraid as if something awful might happen: 0 = Not at all Total RANDY-7 score (0-4 normal; 5-9 mild; 10-14 moderate; 15-21 severe): 5 Source: Developed by Drs. Goran Bernabe, Kelli Singer, Wilbur Mayfield and colleagues, with an educational johny from [employer]. RANDY-7 Assessment Billing RANDY-7 Assessment Tool: RANDY-7 Assessment 17452 Physical exam (Primary Care) Vital Signs: Last Vital Signs Temp 98.5 F 10/11/24 08:23 Pulse 69 10/11/24 08:23 Resp 16 10/11/24 08:23 Pulse Ox 98 10/11/24 08:23 Oxygen Delivery Method Room Air 10/11/24 08:23 BMI result Body Mass Index 31.2 Tobacco/Smoking Status: Tobacco use Status Tobacco use date assessed 09/27/23 10/11/24 08:28 Patient Tobacco Use Status Never used Tobacco 10/11/24 08:28 e-Cigarette/Vaping Use Never Used 10/11/24 08:28 PHQ-9: PHQ-9 Score PHQ-9: Total score 1 10/11/24 08:28 Depression Screening Interpretation: Negative Thrive Assessment: Date of Thrive Assessment Date Thrive assessed 10/04/24 10/11/24 08:28 Currently or been in a relationship where the following occur: No concerns reported Coding Level of Care Code Est Pt Prev Care [id number]([id number]) Diagnoses Physical exam Z00.00 Dyslipidemia E78.5 Additional Codes RANDY-7 Assessment Billing - RANDY-7 Assessment Tool: RANDY-7 Assessment 41465 ([id number]) PHQ-9 - 59030 - PHQ-9 Billing: Yes ([id number]) Assessment & Plan Assessment & Plan (1) Physical exam: Code(s): Z00.00 - Encounter for general adult medical examination without abnormal findings Category: Medical (2) Dyslipidemia: Code(s): E78.5 - Hyperlipidemia, unspecified Category: Medical Plan . Orders: Orders Lipid Panel 2 Months E78.5 - Hyperlipidemia, unspecified Comprehensive [place]. Panel Fast 2 Months E78.5 - Hyperlipidemia, unspecified
[2024-10-11 08:23] VITALS: PULSE 69; RESP 16; TEMP 36.9; O2SAT 98; BMI 31.2
--- OUTSIDE RECORDS SUMMARY | 2024-10-11 08:28 | XMS_ITS | Encounter Summary ---
Author Organization [facility] Address [address] [place] [phone] Phone Care Team Providers Care Pharmacy Billing Adjudicator Name Role Phone Alma Burgess MD Primary Care Provider Unava ilable Encounter Details Date Type Department Care Team (Late st Contact Info) Description 10/28/2016 Conversion Encounter [facility] - [address] [id number] Social History Tobacco Use Types Packs/Day Years Used Date Smoking Tobacco: Never Assessed Comments Unknown Sex and Gender Information Value Date Recorded Sex Assigned at Not on file Legal Sex Female 4:18 PM EDT Gender Identity Not on file Sexual Orientation Not on file documented as of this encounter Plan of Treatment Not on file documented as of this encounter Visit Diagnoses Not on filedocumented in this encounter Care Teams Pharmacy Billing Adjudicator Relationship Specialty Start Date End Date Alma Burgess MD PCP - General 10/22/16 documented as of this encounter
== END 2024-10-11 09:03 | disposition home or self-care (01) ==
LOC: HO.HMCC 08:20
PROVIDERS: PCP Nurse Practitioner Family; Visit Provider Nurse Practitioner Family
DX: Z00.00 Encounter for general adult medical examination without abnormal findings (principal); E78.5 Hyperlipidemia, unspecified

== ENCOUNTER → 2024-10-11 08:19 | Outpatient (BNVA) | payer OTHER, SELFPAY | PROVIDERS: PCP Nurse Practitioner Family; Visit Provider Nurse Practitioner Family | DX: Z00.00 Encounter for general adult medical examination without abnormal findings (principal); E78.5 Hyperlipidemia, unspecified; Z13.31 Encounter for screening for depression; Z13.39 Encounter for screening examination for other mental health and behavioral disorders | CPT/HCPCS: 96127 ==